=== PATIENT | male | born 2000 | race African-American/Black ===

== ENCOUNTER 2023-10-16 22:17 | Emergency (ER) | payer OTHER ==
[2023-10-16 22:29] VITALS: TEMP 98.9
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
[2023-10-16] MEDS: MORPHINE SULFATE 2 MG/ML SYRINGE IM ONE (23:08)
[2023-10-16] MEDS: DIPH,PERTUS(ACELL)TETVAC-LF 0.5 ML VIAL IM ONE (23:10)
[2023-10-16] MEDS: LIDOCAINE 1% INJ 10MG/ML (20 ML MDV) SQ ONE (23:19)
[2023-10-17] MEDS: ceFAZolin 1,000 MG VIAL (IM USE) IM STA (00:44)
--- NOTE | 2023-10-17 01:20 | XR ---
EXAM: XR Left Hand Complete, 3 or More Views CLINICAL HISTORY: ITS.REASON XR Reason: 4th digit injury TECHNIQUE: Frontal, lateral and oblique views of the left hand. COMPARISON: No relevant prior studies available. FINDINGS: Bones/joints: Soft tissue amputation of the fourth finger. No bone involvement. No acute fracture or subluxation. Soft tissues: Unremarkable. No radiopaque foreign body. IMPRESSION: Soft tissue amputation of the fourth finger. No bone involvement.
--- NOTE | 2023-10-17 02:05 | CT ---
EXAM: CT Cervical Spine Without Intravenous Contrast CLINICAL HISTORY: ITS.REASON CT Reason: injury, pain TECHNIQUE: Axial computed tomography images of the cervical spine without intravenous contrast. CTDI is 10.5 mGy and DLP is 340.4 mGy-cm. This CT exam was performed using one or more of the following dose reduction techniques: automated exposure control, adjustment of the mA and/or kV according to patient size, and/or use of iterative reconstruction technique. COMPARISON: No relevant prior studies available. FINDINGS: The vertebral body heights are maintained. The craniocervical junction is intact. The atlanto-dens interval is maintained. The dens is intact. There is no spondylolisthesis. Multilevel degenerative endplate changes. Straightening of the cervical lordosis. The unenhanced neck soft tissues are grossly unremarkable. The visualized lung apices are grossly clear. IMPRESSION: No acute fracture or subluxation of the cervical spine.
[2023-10-17 02:25] VITALS: BP 118/67; PULSE 89; RESP 18
[2023-10-17] MEDS: ACET/COD 300 MG/30 MG STARTER PACK 6 TAB BTL PO STA (02:29)
== END 2023-10-17 02:38 | disposition home or self-care (01) ==
LOC: EC 22:17
DX: S61.412A Laceration without foreign body of left hand, initial encounter (principal); M54.2 Cervicalgia; Z23 Encounter for immunization; V29.99XA Rider (driver) (passenger) of other motorcycle injured in unspecified traffic accident, initial encounter
CPT/HCPCS: 99284 ×2; 90471 ×2; 96372 ×4; 73120; 72125; 90715; J0690; J2001; J2270